=== PATIENT | female | born 1985 | race Caucasian/White ===

== ENCOUNTER 2020-09-23 16:06 | Emergency (ER) | payer OTHER, SELFPAY ==
[2020-09-23 16:20] VITALS: BP 121/100; PULSE 99; RESP 18; TEMP 37.7; O2SAT 99
--- NOTE | 2020-09-23 16:42 | ED.GENADULT ---
HPI - General Adult General Chief complaint: Skin/Abscess/Foreign Body Stated complaint: Infection on right leg Source: patient Mode of arrival: ambulatory Limitations: no limitations History of Present Illness HPI narrative: Patient presents for evaluation of painful swollen lesion to the anterior aspect of the right lower extremity for the last 3 days. She has had similar symptoms in the past with an abscess formation. No fever, chills, nausea, vomiting. She is not diabetic. She does have lupus and is also anticoagulated with Xarelto for DVT and PE. In the past another abscess had a similar appearance and did not require I+D. She reports pain in affected area. No additional complaints or concerns. Related Data Home Medications Medication Instructions Recorded Confirmed atorvastatin 20 mg PO DAILY 12/08/19 09/23/20 azathioprine 100 mg PO BID 12/08/19 09/23/20 baclofen 10 mg PO HS PRN 12/08/19 09/23/20 hydroxychloroquine 200 mg PO BID 12/08/19 09/23/20 prednisone 5 mg PO DAILY 12/08/19 09/23/20 rivaroxaban [Xarelto] 20 mg PO DAILY 12/08/19 09/23/20 Allergies Allergy/AdvReac Type Severity Reaction Status Date / Time Sulfa (Sulfonamide Allergy Intermediate rash Verified 03/11/19 14:53 Antibiotics) Review of Systems Review of Systems: Narrative: CONSTITUTIONAL: Denies fever, chills, or sweats. EYES: Denies visual changes, redness, or discharge. ENT: Denies rhinorrhea, congestion, sore throat, or otalgia. CARDIOVASCULAR: Denies chest pain, palpitations, or edema. RESPIRATORY: Denies cough or dyspnea. GASTROINTESTINAL: Denies abdominal pain, nausea, vomiting, or diarrhea. GENITOURINARY: Denies dysuria or hematuria. SKIN: Denies rash or itching. Reports red, swollen lesion to anterior aspect of RLE MUSCULOSKELETAL: Denies back pain, joint pain. Reports pain in RLE NEUROLOGIC: Denies headache, numbness, dizziness, or weakness. PSYCHIATRIC: Denies anxiety or depression. 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 Lupus Pulmonary embolism Surgical History Surgical History Hx of tonsillectomy Family History Family History (Reviewed 09/23/20 @ 16:45 by Carlos A Castaneda, [facility], ) Other Cerebrovascular accident Diabetes mellitus Hypertension Renal disease Social History Social History (Reviewed 09/23/20 @ 16:45 by Carlos A Castaneda [facility], ) Smoking status: Former smoker Substance use: never Living arrangements: with family Gender identity (if verbalized by the patient): Female Exam Narrative: Exam Narrative: GENERAL: Well-appearing, well-nourished, and in no acute distress. HEAD: Normocephalic, atraumatic. EYES: PERRLA and EOMI. ENT: Nares clear, no rhinorrhea or epistaxis. Mucous membranes moist. Oropharynx without tonsillar hypertrophy exudate or other lesions. Bilateral TMs pearly choudhury nonbulging NECK: Supple. No adenopathy or masses. No carotid bruits or JVD CHEST: Clear to auscultation. No respiratory distress. No wheezes rales or rhonchi HEART: Regular rate and rhythm. No murmur heard. Normal peripheral pulses. ABDOMEN: Soft, nontender, nondistended, normal active bowel sounds. EXTREMITIES: Normal range of motion. No edema. SKIN: Approximately 6 x 6 cm area of erythema noted to the anterior aspect of the right lower extremity with a 1 cm central region that appears to be developing pustule NEURO: No focal deficits. Alert and oriented x3. PSYCH: Normal mood and affect. Course Course Emergency Course: This is a 35-year-old female with a history of cutaneous abscess formation who presents today with a another cellulitic area to her right lower extremity with possible abscess. Her vital sig
== END 2020-09-23 17:04 | disposition home or self-care (01) ==
PROVIDERS: Emergency Provider Nurse Practitioner; PCP Nurse Practitioner Family
DX: L03.115 Cellulitis of right lower limb (principal); Z79.01 Long term (current) use of anticoagulants; Z86.718 Personal history of other venous thrombosis and embolism; Z86.711 Personal history of pulmonary embolism; Z87.891 Personal history of nicotine dependence; D68.61 Antiphospholipid syndrome; M32.9 Systemic lupus erythematosus, unspecified
CPT/HCPCS: 99213; G0463

== ENCOUNTER 2020-12-15 12:20 | Emergency (ER) | payer OTHER, SELFPAY ==
[2020-12-15 12:39] VITALS: BP 150/85; PULSE 94; RESP 16; TEMP 36.7; O2SAT 99
--- NOTE | 2020-12-15 12:51 | ED.GENADULT ---
HPI - General Adult General Chief complaint: Eye Problems Stated complaint: Eye Pain Time Seen by Provider: 12/15/20 12:51 Source: patient and family Mode of arrival: ambulatory Limitations: no limitations History of Present Illness HPI narrative: 35 year old female who presents to [facility] with complaints of left eye itching which started last night with left eye noted to be crusty with mucoid discharge noted this morning. Patient denies any injury, pain, foreign body sensation or any blurred vision from her left eye. Left eye conjunctiva and sclera are reddened with crusting noted on eyelashes, mild swelling and redness noted to left eyelids. Patient has no fever, chills or sweats, denies any sinus congestion, drainage or any cough or sore throat.. MD complaint: eye left Onset (ago): day(s) (1) Location: eyes (left) Radiation: non-radiation Severity: mild Severity scale (1-10): 1 Quality: aching and other (itchy) Pain Consistency: constant Relieving factors: none Exacerbating factors: none Associated symptoms: denies other symptoms Treatments prior to arrival: none Related Data Home Medications Medication Instructions Recorded Confirmed atorvastatin 20 mg PO DAILY 12/08/19 12/15/20 azathioprine 100 mg PO BID 12/08/19 12/15/20 baclofen 10 mg PO HS PRN 12/08/19 12/15/20 hydroxychloroquine 200 mg PO BID 12/08/19 12/15/20 rivaroxaban [Xarelto] 20 mg PO DAILY 12/08/19 12/15/20 Allergies Allergy/AdvReac Type Severity Reaction Status Date / Time Sulfa (Sulfonamide Allergy Intermediate rash Verified 12/15/20 12:26 Antibiotics) Review of Systems Review of Systems: Narrative: CONSTITUTIONAL: Denies fever, chills, or sweats. EYES: Denies visual changes, positive for redness to conjunctiva with discharge to left eye ENT: Denies rhinorrhea, congestion, sore throat, or otalgia. CARDIOVASCULAR: Denies chest pain, palpitations, or edema. RESPIRATORY: Denies cough or dyspnea. GASTROINTESTINAL: Denies abdominal pain, nausea, vomiting, or diarrhea. GENITOURINARY: Denies dysuria or hematuria. SKIN: Denies rash or itching. MUSCULOSKELETAL: Denies acute back pain, joint pain, or myalgia. NEUROLOGIC: Denies headache, numbness, or weakness. PSYCHIATRIC: History of anxiety or depression. 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 There is no relevant family history pertinent to the presenting complaint Exam Narrative: Exam Narrative: GENERAL: Well-appearing, well-nourished, and in no acute distress. HEAD: Normocephalic, atraumatic. EYES: PERRLA and EOMI.conjunctiva and sclera left eye red with mild edema and redness to eyelids, clear mucoid discharge from left eye with crusting on lashes. ENT: Nares clear, no rhinorrhea or epistaxis. Mucous membranes moist. NECK: Supple.no lymphadenopathy CHEST: Clear to auscultation. No respiratory distress.SAO2 99% on room air HEART: Regular rate and rhythm. No murmur heard. Normal peripheral pulses. ABDOMEN:
== END 2020-12-15 13:12 | disposition home or self-care (01) ==
PROVIDERS: Emergency Provider Registered Nurse; PCP Nurse Practitioner Family
DX: H10.32 Unspecified acute conjunctivitis, left eye (principal); Z87.891 Personal history of nicotine dependence; D68.61 Antiphospholipid syndrome; Z86.711 Personal history of pulmonary embolism; M79.7 Fibromyalgia; Z86.718 Personal history of other venous thrombosis and embolism; Z79.01 Long term (current) use of anticoagulants
CPT/HCPCS: 99213; G0463

== ENCOUNTER 2021-01-28 15:20 | Emergency (ER) | payer OTHER, SELFPAY ==
[2021-01-28 15:31] VITALS: BP 149/86; PULSE 94; RESP 16; TEMP 37.4; O2SAT 100
--- NOTE | 2021-01-28 15:32 | ED.SKABFB ---
HPI - Skin/Abscess/Foreign Bdy General Chief complaint: Skin/Abscess/Foreign Body Stated complaint: Lump underneath arm Time Seen by Provider: 01/28/21 15:32 Source: patient and RN notes reviewed Mode of arrival: ambulatory Limitations: no limitations History of Present Illness HPI narrative: 35 yo female presents to the [facility] with complaints of a red painful area under left axilla. History of abscesses. Staph infections. Patient noticed it a day or 2 ago and it is more painful, red, hot to touch. Denies fevers, chest pain, shortness of breath. Related Data Home Medications Medication Instructions Recorded Confirmed atorvastatin 20 mg PO DAILY 12/08/19 01/28/21 azathioprine 100 mg PO BID 12/08/19 01/28/21 baclofen 10 mg PO HS PRN 12/08/19 01/28/21 hydroxychloroquine 200 mg PO BID 12/08/19 01/28/21 rivaroxaban [Xarelto] 20 mg PO DAILY 12/08/19 01/28/21 clonazepam 0.5 mg PO DAILY 01/28/21 01/28/21 Allergies Allergy/AdvReac Type Severity Reaction Status Date / Time Sulfa (Sulfonamide Allergy Intermediate rash Verified 01/28/21 15:43 Antibiotics) Review of Systems Review of Systems: Narrative: CONSTITUTIONAL: Denies fever, chills, or sweats. EYES: Denies visual changes, redness, or discharge. ENT: Denies rhinorrhea, congestion, sore throat, or otalgia. CARDIOVASCULAR: Denies chest pain, palpitations, or edema. RESPIRATORY: Denies cough or dyspnea. GASTROINTESTINAL: Denies abdominal pain, nausea, vomiting, or diarrhea. GENITOURINARY: Denies dysuria or hematuria. SKIN: Red swelling hot to touch left axilla. MUSCULOSKELETAL: Denies back pain, joint pain, or myalgia. NEUROLOGIC: Denies headache, numbness, or weakness. PSYCHIATRIC: Denies anxiety or depression. All other systems reviewed are negative, except as documented in HPI. 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 There is no relevant family history pertinent to the patient complaint. Exam Narrative: Exam Narrative: GENERAL: This is a well-nourished, well-developed patient, in no apparent distress. HEAD: normocephalic, atraumatic. EYES: PERRL. EARS: External ears normal. NECK: Neck supple, non-tender. CARDIOVASCULAR: Regular rate and rhythm without murmurs, gallops, or rubs. RESPIRATORY: Clear to auscultation. Breath sounds equal bilaterally. No wheezes, rales, or rhonchi. GASTROINTESTINAL: Abdomen soft, non-tender. SKIN: warm, intact with no rash, good texture and turgor. Left axilla 2-1/2 x 1 cm red raised area fluctuant with a white pustule in the center. Painful to palpation NEURO: awake, alert, and oriented to person, place and time. There were no obvious focal neurologic abnormalities. EXTREMITIES: No joint tenderness, effusion, or edema noted. . BACK: Nontender without deformity Course Vital Signs Vital signs: Vital Signs Temperature 99.4 F 01/28/21 15:31 Pulse Rate 94 01/28/21 15:31 Respiratory Rate 16 01/28/21 15:31 Blood Pressure 149/86 H 01/28/21 15:31 Pulse Oximetry 100 01/28/21 15:31 Temperature 99.4 F 01/28/21 15:31
== END 2021-01-28 16:38 | disposition home or self-care (01) ==
PROVIDERS: Emergency Provider Nurse Practitioner; PCP Nurse Practitioner Family
DX: R22.32 Localized swelling, mass and lump, left upper limb (principal); L02.412 Cutaneous abscess of left axilla; Z87.891 Personal history of nicotine dependence; F41.9 Anxiety disorder, unspecified; Z86.718 Personal history of other venous thrombosis and embolism; M79.7 Fibromyalgia; Z86.711 Personal history of pulmonary embolism; M32.9 Systemic lupus erythematosus, unspecified
CPT/HCPCS: 10060; 87070; 87075; 87147; 87186; 87205; 99213; G0463

== ENCOUNTER 2021-06-12 02:05 | Emergency (ER) | payer OTHER, SELFPAY ==
[2021-06-12 02:08] VITALS: BP 154/103; PULSE 116; RESP 19; TEMP 36.6; O2SAT 100
--- NOTE | 2021-06-12 03:15 | ED.GENADULT ---
HPI - General Adult General Chief complaint: Urogenital-Female Stated complaint: knot in my vagina Time Seen by Provider: 06/12/21 02:20 History of Present Illness HPI narrative: Patient 35-year-old female presents emerged department with chief complaint of pain in the vaginal area. Patient reports that she started having some pain and swelling in the vaginal area earlier today and it is progressed to the point that she noticed the area is swollen second complaint. The patient states is tender to touch reports he is unable to get comfortable in any position. Patient denies fever denies vaginal discharge reports she has history of axillary abscesses before in the past Related Data Home Medications Medication Instructions Recorded Confirmed atorvastatin 20 mg PO DAILY 12/08/19 01/28/21 azathioprine 100 mg PO BID 12/08/19 01/28/21 baclofen 10 mg PO HS PRN 12/08/19 01/28/21 hydroxychloroquine 200 mg PO BID 12/08/19 01/28/21 rivaroxaban [Xarelto] 20 mg PO DAILY 12/08/19 01/28/21 clonazepam 0.5 mg PO DAILY 01/28/21 01/28/21 Allergies Allergy/AdvReac Type Severity Reaction Status Date / Time Sulfa (Sulfonamide Allergy Intermediate rash Verified 01/28/21 15:43 Antibiotics) Review of Systems Review of Systems: Narrative: A 10 system review of systems was completed on the patient and is negative except for what is stated in the HPI. Nursing and ancillary documentation was reviewed. 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 HEAD: Normocephalic, atraumatic. EYES: PERRLA and EOMI. ENT: Nares clear, no rhinorrhea or epistaxis. Mucous membranes moist. NECK: Supple. CHEST: Clear to auscultation. No respiratory distress. HEART: Regular rate and rhythm. No murmur heard. Normal peripheral pulses. ABDOMEN: Soft, nontender, nondistended, normal active bowel sounds. EXTREMITIES: Normal range of motion. No edema. 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 NEURO: No focal deficits. Alert and oriented x3. PSYCH: Normal mood and affect. Course Vital Signs Vital signs: Vital Signs Temperature 36.6 C 06/12/21 02:08 Pulse Rate 116 H 06/12/21 02:08 Respiratory Rate 19 06/12/21 02:08 Blood Pressure 154/103 H 06/12/21 02:08 Pulse Oximetry 100 06/12/21 02:08 Temperature 36.6 C 06/12/21 02:08 Pulse Rate 116 H 06/12/21 02:08 Respiratory Rate 19 06/12/21 02:08 Blood Pressure 154/103 H 06/12/21 02:08 Pulse Oximetry 100 06/12/21 02:08 Procedures Abscess I/D bartholin's gland: Date of Incision: 06/12/21 Time of Incision: 03:17 Side (if applicable): right Local Anesthetic: lidocaine 1% Amount of anesthesia used (mL): 5 Technique: incised with #11 blade Amount of fluid expressed (mL): 3 Packing used?: iodoform I&D Results: Pus and Blood Complications: pain Medical Decision Making Vital Signs Vital Signs: Vital Signs Temperature 36.6 C 07
[2021-06-12] MEDS: HYDROcodone/acetaminophen (*CRX) 5-325 MG TABLET 1 TAB PO (03:44)
[2021-06-12] MEDS: DOXYCYCLINE HYCLATE 50 MG CAPSULE PO (03:45)
== END 2021-06-12 03:56 | disposition home or self-care (01) ==
PROVIDERS: Emergency Provider Emergency Medicine; PCP Nurse Practitioner Family
DX: N75.0 Cyst of Bartholin's gland (principal)
CPT/HCPCS: 56420; 99283; A9270

== ENCOUNTER 2022-03-10 17:10 | Emergency (ER) | payer OTHER, SELFPAY ==
[2022-03-10 17:18] VITALS: BP 151/91; PULSE 99; RESP 18; TEMP 36.9
--- NOTE | 2022-03-10 17:18 | ED.SKABFB ---
HPI - Skin/Abscess/Foreign Bdy General Chief complaint: Skin/Abscess/Foreign Body Stated complaint: Cyst on side Time Seen by Provider: 03/10/22 17:18 Source: patient, RN notes reviewed and old records reviewed Mode of arrival: ambulatory Limitations: no limitations History of Present Illness HPI narrative: 36-year-old female presents to the [facility] with redness, swelling and increased warmth to the right lower abdomen. Patient states she had a small blister yesterday that she had broken open, cleaned it, drained it, applied warm compresses and woke up this morning with redness and swelling. Denies fevers, abdominal pain or chest pain. States she has a history of MRSA. Related Data Home Medications Medication Instructions Recorded Confirmed atorvastatin 20 mg PO DAILY 12/08/19 03/10/22 azathioprine 100 mg PO BID 12/08/19 03/10/22 baclofen 10 mg PO HS PRN 12/08/19 03/10/22 hydroxychloroquine 200 mg PO BID 12/08/19 03/10/22 rivaroxaban [Xarelto] 20 mg PO DAILY 12/08/19 03/10/22 clonazepam 0.5 mg PO DAILY 01/28/21 03/10/22 Allergies Allergy/AdvReac Type Severity Reaction Status Date / Time Sulfa (Sulfonamide Allergy Intermediate rash Verified 03/10/22 17:16 Antibiotics) Review of Systems Review of Systems: All systems reviewed & are unremarkable except as noted in HPI and below Constitutional: Constitutional: Reports no additional constitutional complaints, Denies chills and Denies fever(s) Eyes: Eyes: Reports no additional eye complaints ENT: Reports system reviewed and no additional complaints, except as documented Cardiovascular: Cardiovascular: Reports no additional cardiovascular complaints and Denies chest pain Respiratory: Respiratory: Reports no additional respiratory complaints, Denies cough and Denies dyspnea Gastrointestinal: Gastrointestinal: Reports no additional gastrointestinal complaints, Denies abdominal pain, Denies diarrhea, Denies nausea and Denies vomiting Musculoskeletal: Musculoskeletal: Reports no additional musculoskeletal complaints Integumentary/Breasts: Skin/Breast: Reports as per HPI and Reports erythema (right lower abd, blister) Neurologic: Reports system reviewed and no additional complaints, except as documented Psychiatric: Psychiatric: Reports no additional psychiatric complaints Allergic/Immunologic: Allergic/Immunologic: Reports no additional allergic/immunologic complaints PMFSH Past Medical History Medical History Antiphospholipid antibody syndrome Anxiety DVT (deep venous thrombosis) 2012 Fibromyalgia Genital warts 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 There is no relevant family history pertinent to the patient complaint. Exam Const: General: healthy appearing, no acute distress and alert Nutritional Appearance: well nourished and obese Orientation/consciousness: patient oriented x3 Limitations: no limitations HENMT: Head: normal to inspection Ears: external ears normal Eyes: Pupils: Equal, round and reactive pupils present Neck: Neck: normal visual inspection, no lymphadenopathy and no meningeal signs Chest: Chest palpation & inspection: normal inspection of the chest Resp: Effort
[2022-03-10 17:34] VITALS: BP 151/91; PULSE 99; RESP 18; TEMP 36.9
== END 2022-03-10 17:50 | disposition home or self-care (01) ==
PROVIDERS: Emergency Provider Nurse Practitioner; PCP Nurse Practitioner Family
DX: L03.311 Cellulitis of abdominal wall (principal); B37.2 Candidiasis of skin and nail; Z87.891 Personal history of nicotine dependence; M79.7 Fibromyalgia; Z86.711 Personal history of pulmonary embolism; Z86.718 Personal history of other venous thrombosis and embolism; F41.9 Anxiety disorder, unspecified; D68.61 Antiphospholipid syndrome; Z86.14 Personal history of Methicillin resistant Staphylococcus aureus infection; L95.0 Livedoid vasculitis
CPT/HCPCS: 99213; G0463